=== PATIENT | female | born 1960 | race Two or more races ===

== ENCOUNTER 2016-08-02 19:01 | Emergency (ER) | payer OTHER ==
[2016-08-02 19:01] VITALS: BMI 28.3
[2016-08-02 19:19] VITALS: BP 110/76; PULSE 87; RESP 16; TEMP 98.7; O2SAT 98
--- NOTE | 2016-08-02 19:48 | ED PDOC ---
Arrival/HPI - General Chief Complaint: Back Pain Time Seen by Provider: 08/02/16 19:21 Historian: Patient - History of Present Illness Narrative History of Present Illness (Text): 08/02/16 19:52 56yo female with PMHx of Gastritis and OA present with complaint of left sided back pain. States she saw her PMD for the pain and was given muscle relaxer yesterday. States took it yesterday without relieve. She notes that her pain improved this morning with OTC Aleve. States she came to ED because she don't want to have the same type of pain she had last night. States she missed work today and not sure if when will be able to go tomorrow. She reports that her pain is currently improved. Denies trauma, chest pain, SOB, abdominal pain, UTI symptoms, any other complaint. Past Medical History - Provider Review Nursing Documentation Reviewed: Yes - Infectious Disease Hx of Infectious Diseases: None - Tetanus Immunization Tetanus Immunization: Unknown - Cardiac Hx Cardiac Disorders: No - Pulmonary Hx Respiratory Disorders: No - Neurological Hx Neurological Disorder: No - HEENT Hx HEENT Disorder: No - Renal Hx Renal Disorder: No - Endocrine/Metabolic Hx Endocrine Disorders: No - Hematological/Oncological Hx Blood Disorders: No - Integumentary Hx Dermatological Disorder: No - Musculoskeletal/Rheumatological Hx Arthritis: Yes - Gastrointestinal Hx Gastrointestinal Disorders: No - Genitourinary/Gynecological Hx Genitourinary Disorders: No - Psychiatric Hx Psychophysiologic Disorder: No Hx Depression: No Hx Emotional Abuse: No Hx Physical Abuse: No Hx Substance Use: No - Past Surgical History Past Surgical History: Non-Contributing - Surgical History Hx Section: Yes - Anesthesia Hx Anesthesia: Yes Hx Anesthesia Reactions: No Hx Malignant Hyperthermia: No - Suicidal Assessment Feels Threatened In Home Enviroment: No Family/Social History - Physician Review Nursing Documentation Reviewed: Yes Family/Social History: Unknown Family HX Smoking Status: Never Smoked Hx Alcohol Use: No Hx Substance Use: No Hx Substance Use Treatment: No Allergies/Home Meds Allergies/Adverse Reactions: Allergies No Known Allergies Allergy (Verified 08/02/16 19:13) Home Medications: Home Meds Medication Instructions Recorded Confirmed Cyclobenzaprine [Flexeril] 10 mg PO HS PRN 08/02/16 08/02/16 Ranitidine HCl [Zantac] 150 mg PO BID 08/02/16 08/02/16 Review of Systems - Physician Review All systems were reviewed & negative as marked: Yes - Review of Systems Constitutional: Normal Eyes: Normal ENT: Normal Respiratory: Normal Cardiovascular: Normal Gastrointestinal: Normal Genitourinary Female: Normal Musculoskeletal: Normal, Back Pain Skin: Normal Neurological: Normal Endocrine: Normal Hemo/Lymphatic: Normal Psychiatric: Normal Physical Exam Vital Signs Reviewed: Yes Vital Signs Temp Pulse Resp BP Pulse Ox 08/02/16 19:18 98.7 F 87 16 110/76 98 Temperature: Afebrile Blood Pressure: Normal Pulse: Regular Respiratory Rate: Normal Appearance: Positive for: Well-Appearing, Non-Toxic, Comfortable Pain Distress: None Mental Status: Positive for: Alert and Oriented X 3 - Systems Exam Head: Present: Atraumatic, Normocephalic Pupils: Present: PERRL Extroacular Muscles: Present: EOMI Conjunctiva: Present: Normal Mouth: Present: Moist Mucous Membranes Neck: Present: Normal Range of Motion Respiratory/Chest: Present: Clear to Auscultation, Good Air Exchange. No: Respiratory Distress, Accessory Muscle Use Cardiovascular: Present: Regular Rate and Rhythm, Normal S1, S2. No: Murmurs Abdomen: Present: Normal Bowel Sounds. No: Tenderness, Distention, Peritoneal Signs Back: Present: Paraspinal Tenderness (Mild left paraspinous tenderness). No: Midline Tenderness, Pain with Leg Raise Upper Extremity: Present: Normal Inspection. No: Cyanosis, Edema Lower Extremity: Present: Normal Inspection. No: Edema Neurological: Present: GCS=15, CN II-XII Intact, Speech Normal Skin: Present: Warm, Dry, Normal Color. No: Rashes Psychiatric: Present: Alert, Oriented x 3, Normal Insight, Normal Concentration Medical Decision Making ED Course and Treatment: 08/02/16 20:08 PT was comfortable in ED. She is not in any distress. She was ambulatory . Her pain is MS. She was DC home with Tramadol. She needed NSAID, but have history of gastritis. Advised to continue with her muscle relaxer. Disposition/Present on Arrival - Present on Arrival Any Indicators Present on Arrival: No History of DVT/PE: No History of Uncontrolled Diabetes: No Urinary Catheter: No History of Decub. Ulcer: No History Surgical Site Infection Following: None - Disposition Have Diagnosis and Disposition been Completed?: Yes Diagnosis: Thoracic sprain Disposition: HOME/ ROUTINE Disposition Time: 19:50 Patient Plan: Discharge Patient Problems: Current Active Problems Problem Status Onset Thoracic sprain Acute Condition: STABLE Discharge Instructions (ExitCare): Back Pain (ED) Additional Instructions: Follow up with your doctor Return to ED for any new or worsening symptoms Prescriptions: traMADol [Ultram] 50 mg PO Q6 #9 tab Referrals: Anne Marie San MD [Primary Care Provider] - Follow up with primary
== END 2016-08-02 20:00 | disposition home or self-care (01) ==
LOC: ED 19:01
DX: S23.3XXA Sprain of ligaments of thoracic spine, initial encounter (principal); X58.XXXA Exposure to other specified factors, initial encounter; Y92.89 Other specified places as the place of occurrence of the external cause

== ENCOUNTER 2017-02-28 19:28 | Emergency (ER) | payer OTHER ==
[2017-02-28 19:28] VITALS: BMI 28.3
[2017-02-28 19:33] VITALS: TEMP 97.7; O2SAT 100
--- NOTE | 2017-02-28 20:02 | ED PDOC ---
Arrival/HPI - General Historian: Patient - History of Present Illness Time/Duration: 24 hours Symptom Onset: Sudden Symptom Course: Unchanged Quality: Aching, Cramping Severity Level: 10 Activities at Onset: Light Context: Work - General Chief Complaint: Trauma - History of Present Illness Narrative History of Present Illness (Text): 02/28/17 19:46 Ms. Rivera is a 56 year old female with no significant past medical history who presents to the [facility] ED with a chief complaint of right shoulder and right knee pain after a mechanical fall at work yesterday evening. Patient reports that while at work at [employer], she slipped on a freshly waxed floor and landed on her right shoulder and right knee. She reports that since that time she has had continued pain in both areas despite taking advil and taking a long hot shower. She denies any head trauma, fever, chills, headache, dizziness, changes in her vision, epistaxis, chest pain, palpitations, SOB, cough, abdominal pain, N/V/D/C , burning/pain with urination, rashes, or any numbness/tingling/weakness of any extremity. (Fidencio Lan) Past Medical History - Provider Review Nursing Documentation Reviewed: Yes - Travel History Have you recently traveled outside [place] w/in the past 3 mons?: No - Past History Past History: No Previous - Infectious Disease Hx of Infectious Diseases: None - Tetanus Immunization Tetanus Immunization: Unknown - Reproductive Menopause: Yes - Cardiac Hx Cardiac Disorders: No - Pulmonary Hx Respiratory Disorders: No - Neurological Hx Neurological Disorder: No - HEENT Hx HEENT Disorder: No - Renal Hx Renal Disorder: No - Endocrine/Metabolic Hx Endocrine Disorders: No - Hematological/Oncological Hx Blood Disorders: No - Integumentary Hx Dermatological Disorder: No - Musculoskeletal/Rheumatological Hx Musculoskeletal Disorders: Yes Hx Arthritis: Yes - Gastrointestinal Hx Gastrointestinal Disorders: No - Genitourinary/Gynecological Hx Genitourinary Disorders: No - Psychiatric Hx Psychophysiologic Disorder: No Hx Depression: No Hx Emotional Abuse: No Hx Physical Abuse: No Hx Substance Use: No - Past Surgical History Past Surgical History: Non-Contributing - Surgical History Hx Section: Yes (x1) - Anesthesia Hx Anesthesia: Yes Hx Anesthesia Reactions: No Hx Malignant Hyperthermia: No - Suicidal Assessment Feels Threatened In Home Enviroment: No Family/Social History - Physician Review Nursing Documentation Reviewed: Yes Family/Social History: No Known Family HX Smoking Status: Never Smoked Hx Alcohol Use: No Hx Substance Use: No Hx Substance Use Treatment: No Allergies/Home Meds Allergies/Adverse Reactions: Allergies No Known Allergies Allergy (Verified 02/28/17 19:30) Home Medications: Home Meds Medication Instructions Recorded Confirmed No Known Home Med 02/28/17 02/28/17 Review of Systems - Physician Review All systems were reviewed & negative as marked: Yes - Review of Systems Constitutional: Normal. absent: Fevers, Night Sweats Eyes: Normal. absent: Vision Changes ENT: Normal. absent: Epistaxis Respiratory: Normal. absent: SOB, Cough Cardiovascular: Normal. absent: Chest Pain, Palpitations Gastrointestinal: Normal. absent: Abdominal Pain, Constipation, Diarrhea, Nausea, Vomiting Genitourinary Female: Normal. absent: Dysuria Musculoskeletal: Arthralgias (Right knee, right shoulder/arm). absent: Normal, Back Pain, Neck Pain, Joint Swelling Skin: Normal. absent: Rash Neurological: Normal. absent: Headache, Dizziness Endocrine: Normal Hemo/Lymphatic: Normal Psychiatric: Normal Physical Exam Vital Signs Reviewed: Yes Temperature: Afebrile Blood Pressure: Normal Pulse: Regular Respiratory Rate: Normal Appearance: Positive for: Well-Appearing, Non-Toxic, Comfortable Pain Distress: Mild Mental Status: Positive for: Alert and Oriented X 3 - Systems Exam Head: Present: Atraumatic, Normocephalic. No: Tenderness, Contusion, Swelling, Ecchymosis, Abrasion, Laceration Pupils: Present: PERRL. No: Sluggish, Non-Reactive, Pinpoint Extroacular Muscles: Present: EOMI. No: Gaze Palsy, Entrapment Conjunctiva: Present: Normal. No: Injected, Icteric Mouth: Present: Moist Mucous Membranes Pharnyx: Present: Normal. No: ERYTHEMA, EXUDATE, TONSILS ENLARGED Nose (External): Present: Atraumatic Nose (Internal): Present: Normal Inspection, No Active Bleeding Neck: Present: Normal Range of Motion, Trachea Midline. No: Meningeal Signs, MIDLINE TENDERNESS, Paraspinal Tenderness, JVD, Lymphadenopathy Respiratory/Chest: Present: Clear to Auscultation, Good Air Exchange. No: Respiratory Distress, Accessory Muscle Use, Wheezes, Decreased Breath Sounds, Rales, Retracting, Rhonchi, Tachypneic, Tender to Palpation Cardiovascular: Present: Regular Rate and Rhythm, Normal S1, S2, Peripheal Pulses Present. No: Murmurs, Irregular Rhythm, Tachycardic, Bradycardic Abdomen: Present: Normal Bowel Sounds. No: Tenderness, Distention, Peritoneal Signs Back: Present: Normal Inspection. No: CVA Tenderness, Midline Tenderness, Paraspinal Tenderness Upper Extremity: Present: NORMAL PULSES, Tenderness (TTP to right clavicle, right humeral head and along body of humerus extending distally to right elbow) , Neurovascularly Intact, Capillary Refill < 2s. No: Normal Inspection, Cyanosis, Edema, Normal ROM (Decreased ROM in flexion/extension and abduction/ adduction planes of right shoulder due to pain), Swelling, Erythema, Temperature Abnormalties, Deformity Lower Extremity: Present: NORMAL PULSES, Normal ROM, Tenderness (TTP to right patella), Neurovascularly Intact. No: Normal Inspection, Edema, CALF TENDERNESS , Cyanosis, Jessica's Sign, Swelling, Erythema, Deformity, Temperature Abnormalties Neurological: Present: GCS=15, CN II-XII Intact, Speech Normal Skin: Present: Warm, Dry, Normal Color. No: Rashes Lymphatic: No: Cervical Adenopathy Psychiatric: Present: Alert, Oriented x 3, Normal Insight, Normal Concentration Vital Signs Temp Pulse Resp BP Pulse Ox 02/28/17 21:56 76 18 131/75 100 02/28/17 19:33 97.7 F 94 H 16 139/80 100 Medical Decision Making - RAD Interpretation Ux Interaction Designer: ED Physician, Radiologist ED Course and Treatment: Patient Seen With Resident: In agreement with resident note which contains more details about the patient. Patient was seen and evaluated with resident. Came up with plan and treatment together. A 56 year old female with right shoulder and right knee pain s/p mechanical fall. Additional HPI as noted by resident. On physical exam, patient has tender to palpation to right clavicle, decreased range of motion in flexion/extension and abduction/adduction planes of right shoulder, neurovascularly intact, and tender to palpation to right patella, normal range of motion, neurovascularly intact. Ordered radiology of right elbow, right clavicle, right knee with patella, and right shoulder. Will give patient Motrin and Tylenol. (Candido Blake) 02/28/17 20:25 Impression: 56 year old female with no significant past medical history who presents to the [facility] ED with a chief complaint of right shoulder and right knee pain after a mechanical fall at work yesterday evening Plan: -Ibuprofen 600mg and Tylenol 975mg PO STAT -Right shoulder, right elbow, right clavicle and right knee x-ray's -Reassess and disposition Prior Visits: Patient seen and evaluated for back pain in 07/2016 (Fidencio Lan) - RAD Interpretation Radiology Orders: 02/28/17 20:02 CLAVICLE RIGHT [RAD] Stat ELBOW RIGHT 3 VIEWS ROUTINE [RAD] Stat KNEE W PATELLA RIGHT 3 VIEW [RAD] Stat SHOULDER RIGHT [RAD] Stat - Medication Orders Current Medication Orders: Discontinued Medications Acetaminophen (Tylenol 325mg Tab) 975 mg PO STAT STA Stop: 02/28/17 20:09 Last Admin: 02/28/17 20:23 Dose: 975 mg Ibuprofen (Motrin Tab) 600 mg PO STAT STA Stop: 02/28/17 20:09 Last Admin: 02/28/17 20:23 Dose: 600 mg MAR Pain/Vitals Document 02/28/17 20:23 GMD (Rec: 02/28/17 20:23 GMD [facility]-[id number]) Pain Reassessment Is This A Pain ReAssessment? No Sleep Is patient sleeping during reassessment? No Presence of Pain Presence of Pain Yes Disposition/Present on Arrival - Present on Arrival Any Indicators Present on Arrival: No History of DVT/PE: No History of Uncontrolled Diabetes: No Urinary Catheter: No History of Decub. Ulcer: No History Surgical Site Infection Following: None - Disposition Have Diagnosis and Disposition been Completed?: Yes Disposition Time: 21:40 Patient Plan: Discharge - Disposition Diagnosis: Right shoulder pain, Right knee pain Disposition: HOME/ ROUTINE Condition: GOOD Discharge Instructions (ExitCare): Knee Pain (ED), Shoulder Pain (ED) Additional Instructions: Ms. Rivera, thank you for letting us take care of you today. Your provider was Dr. Blake. You were treated for right shoulder and right knee pain after a fall. The emergency medical care you received today was directed at your acute symptoms. If you were prescribed any medication, please fill it and take as directed. It may take several days for your symptoms to resolve. Return to the Emergency Department if your symptoms worsen, do not improve, or if you have any other problems. Please contact your doctor or call one of the physicians/clinics you have been referred to that are listed on the Patient Visit Information form that is included in your discharge packet. Bring any paperwork you were given at discharge with you along with any medications you are taking to your follow up visit. Our treatment cannot replace ongoing medical care by a primary care provider (PCP) outside of the emergency department. PLEASE FOLLOW UP WITH YOUR PRIMARY CARE DOCTOR WITHIN ONE TO TWO WEEKS Thank you for allowing the [facility] team to be part of your care today. If you had an X-Ray or CT scan: A Radiologist will review the ED reading if any change in treatment is needed we will contact you. Referrals: Anne Marie San MD [Primary Care Provider] - Follow up with primary Forms: [employer] (Bulgarian), WORK NOTE
[2017-02-28 21:56] VITALS: BP 131/75; PULSE 76; RESP 18
--- NOTE | 2017-03-01 07:52 | RAD ---
PROCEDURE: Radiographs of the Right Shoulder HISTORY: fall/shoulder pain COMPARISON: No prior. FINDINGS: BONES: Normal. No fracture. JOINTS: Normal. Glenohumeral and acromioclavicular joints preserved. No osteoarthritis. SOFT TISSUES: Normal. OTHER FINDINGS: None. IMPRESSION: Normal radiographs of the right shoulder.
--- NOTE | 2017-03-01 07:53 | RAD ---
PROCEDURE: Radiographs of the right clavicle. HISTORY: fall/shoulder pain COMPARISON: None. FINDINGS: RIGHT CLAVICLE: No fracture or focal lesion. JOINTS: Right acromioclavicular and glenohumeral joints are grossly unremarkable. SOFT TISSUES: Grossly unremarkable. OTHER FINDINGS: None. IMPRESSION: Normal radiographs of the right clavicle.
--- NOTE | 2017-03-01 07:54 | RAD ---
PROCEDURE: Radiographs of the right elbow. HISTORY: fall/arm pain COMPARISON: No prior. FINDINGS: BONES: Normal. No fracture. JOINTS: Normal. No osteoarthritis. SOFT TISSUES: Normal. JOINT EFFUSION: None. OTHER FINDINGS: None. IMPRESSION: Unremarkable radiographs of the right elbow.
--- NOTE | 2017-03-01 07:55 | RAD ---
PROCEDURE: Right Knee Radiographs. HISTORY: fall/knee pain COMPARISON: None. FINDINGS: BONES: Normal. No fracture. JOINTS: Normal. No osteoarthritis. JOINT EFFUSION: None. OTHER FINDINGS: None. IMPRESSION: Normal radiographs of the right knee.
== END 2017-02-28 21:57 | disposition home or self-care (01) ==
LOC: ED 19:28
DX: M25.511 Pain in right shoulder (principal); M25.561 Pain in right knee